=== PATIENT | male | born 2000 | race American Indian/Alaskan Native ===

== ENCOUNTER 2019-10-18 19:11 | Emergency (ER) | payer SELFPAY ==
[2019-10-18] MEDS ORDERED: SODIUM CHLORIDE 0.9% 1000 ML 1,000 ML IV ONE (19:34)
[2019-10-18] MEDS ORDERED: LORazepam 2 MG/ML VIAL IV ONE (19:35)
--- NOTE | 2019-10-18 19:40 | Emergency Department Report ---
ED Psych HPI - General Stated Complaint: MH Time Seen by Provider: 10/18/19 19:28 - History of Present Illness Initial Comments: Patient is 19 years old male with history of depression and an anxiety. Patient brought to the emergency from by his girlfriend for evaluation of suicidal ideation and depression. Patient girlfriend stated that she broke up with him today and since then he started saying that he went to kill himself. Patient is not talking. Patient is hyperventilating. Patient denied any recent drug abuse. Patient denied any homicidal ideation. No visual or auditory hallucination. MD Complaint: suicidal ideation, feels depressed ED Review of Systems ROS: Stated complaint: MH Other details as noted in HPI Comment: All other systems reviewed and negative Constitutional: denies: chills, fever Respiratory: denies: shortness of breath, SOB with exertion Cardiovascular: denies: chest pain Gastrointestinal: denies: abdominal pain, nausea, vomiting Psychiatric: anxiety, depression, suicidal thoughts. denies: auditory hallucinations, visual hallucinations, homicidal thoughts ED Physical Exam - General General appearance: alert, in no apparent distress, anxious - Head Head exam: Present: atraumatic, normocephalic, normal inspection - Eye Eye exam: Present: normal appearance - ENT ENT exam: Present: normal exam, normal orophraynx, mucous membranes moist - Neck Neck exam: Present: normal inspection, full ROM. Absent: tenderness, meningismus, lymphadenopathy, thyromegaly - Respiratory Respiratory exam: Present: normal lung sounds bilaterally - Cardiovascular Cardiovascular Exam: Present: regular rate, normal rhythm, normal heart sounds - GI/Abdominal GI/Abdominal exam: Present: soft, normal bowel sounds. Absent: distended, tenderness, guarding, rebound, rigid, organomegaly, mass, bruit, pulsatile mass, hernia - Extremities Exam Extremities exam: Present: normal inspection, full ROM, normal capillary refill. Absent: tenderness, pedal edema, joint swelling, calf tenderness - Back Exam Back exam: Present: normal inspection, full ROM. Absent: CVA tenderness (R), CVA tenderness (L), muscle spasm, paraspinal tenderness, vertebral tenderness - Neurological Exam Neurological exam: Present: alert, oriented X3, CN II-XII intact, normal gait, reflexes normal. Absent: abnormal gait, motor sensory deficit - Psychiatric Psychiatric exam: Present: depressed, anxious, suicidal ideation. Absent: agitated, flat affect, manic, homicidal ideation - Skin Skin exam: Present: warm, intact, normal color Critical care attestation.: If time is entered above; I have spent that time in minutes in the direct care of this critically ill patient, excluding procedure time. ED Disposition Clinical Impression: Depression, Suicidal ideation Disposition: [id number]/TX-[id number] PSY HOSP/PSY UNIT Is pt being admited?: No Condition: Stable
[2019-10-18 20:33] LABS: Bilirubin,Urine NEG (Negative); Blood,Urine NEG (Negative); Color,Urine Straw (Yellow); Protein,Urine <15 mg/dL mg/dL (Negative); Urobilinogen,Urine < 2.0 mg/dL (<2.0); WBC,Urine < 1.0 /HPF (0.0-6.0)
[2019-10-18 20:41] LABS: Amphetamine Screen,Urine PRESUMPTIVE NEGATIVE; Benzodiazepines Screen,Urine PRESUMPTIVE NEGATIVE; Cocaine Screen,Urine PRESUMPTIVE NEGATIVE; Methadone Screen,Urine PRESUMPTIVE NEGATIVE; Opiate Screen,Urine PRESUMPTIVE NEGATIVE
[2019-10-18 20:47] LABS: Basophils % (Auto) 0.5 % (0.0-1.8); Eosinophils # (Auto) 0.1 K/mm3 (0.0-0.4); Eosinophils % (Auto) 1.5 % (0.0-4.3); Hematocrit 47.6 % (35.5-45.6); Hemoglobin 15.7 gm/dl (11.8-15.2); Lymphocytes % (Auto) 16.3 % (13.4-35.0); Mean Corpuscular HGB Conc 33 % (32-34); Mean Corpuscular Volume 81 fl (84-94); Monocytes # (Auto) 0.6 K/mm3 (0.0-0.8); Monocytes % (Auto) 9.3 % (0.0-7.3); Platelet Count 235 K/mm3 (140-440); Red Cell Distribution Width 13.3 % (13.2-15.2)
[2019-10-18 20:54] LABS: Cannabinoid Screen,Urine PRESUMPTIVE POSITIVE
[2019-10-18 21:07] LABS: BUN/Creatinine Ratio 8; Blood Urea Nitrogen 7 mg/dL (9-20); Calcium 9.4 mg/dL (8.4-10.2); Hemolysis Index 11
--- NOTE | 2019-10-19 10:31 | Consultation ---
History of Present Illness - Reason for Consult Consult date: 10/19/19 Reason for consult: Mental Health Evaluation Requesting physician: RADHA MILLS - Chief Complaint Chief complaint: "I wanted to kill myself yesterday" - History of Present Psychiatric Illness 19 y.o AA male who presented to the ER for SI's. Today the patient was calm during the assessment. Initially the patient was guarded with his answers reference why he was brought to the ER. He eventually opened up and stated that he is having life stressors (unemployment and relationship issues). He stated that he was fired from his job and broke up with his girlfriend a month ago. He stated that "things" have been coming down on him, so yesterday he stated that he thought about shooting himself so he could . He would not conform or deny that he pointed his gun at himself when asked. He stated, "I wanted my life to be over." He rate his depression 5/10, with 10 being the worse. He acknowledged erratic sleep and a poor appetite. He denies recreational sudhir gu se and alcohol consumption (etoh), but was positive for marijuana. Medications and Allergies Allergies Allergy/AdvReac Type Severity Reaction Status Date / Time seafoods Allergy Unknown Uncoded 10/18/19 20:17 Home Medications Medication Instructions Recorded Confirmed Last Taken Type No Known Home Medications [No 10/18/19 10/18/19 Unknown History Reported Home Medications] Active Meds: Active Medications Mirtazapine (Remeron) 15 mg PO HS [facility] Past psychiatric history - Past Medical History Past Medical History: No medical history Past Surgical History: No surgical history - past Psychiatric treatment and history psychiatric treatment history: Denies a psy hx and fam psy hx. - Social History Social history: Lives alone Mental Status Exam - Vital signs Last Vital Signs Temp 98.3 F 10/19/19 07:00 Pulse 99 H 10/19/19 07:00 Resp 18 10/19/19 07:00 BP 120/63 10/19/19 07:00 Pulse Ox 100 10/19/19 07:00 - Exam Narrative exam: MSE: Appearance: calm Behavior: poor eye contact Speech: regular rate and tone Mood:: "down" Affect: flat Thought Process: circumstantial Thought Content: denies HI's and AVH's Motor Activity: ambulatory Cognition: A/O x3 Insight: variable Judgment: poor Results Result Diagrams: 10/18/19 20:26 10/18/19 20:26 Abnormal lab results 10/18/19 10/18/19 10/18/19 Range/Units 20:16 20:26 20:26 RBC 5.90 H (3.65-5.03) M/mm3 Hgb 15.7 H (11.8-15.2) gm/dl Hct 47.6 H (35.5-45.6) % MCV 81 L (84-94) fl MCH 27 L (28-32) pg [place] % (Auto) 9.3 H (0.0-7.3) % Lymph # 1.0 L (1.2-5.4) K/mm3 Seg Neutrophils % 72.4 H (40.0-70.0) % Potassium 3.2 L (3.6-5.0) mmol/L BUN 7 L (9-20) mg/dL Urine pH 9.0 H (5.0-7.0) Salicylates (2.8-20.0) mg/dL Acetaminophen (10.0-30.0) ug/mL 10/18/19 10/18/19 Range/Units 20:27 20:27 RBC (3.65-5.03) M/mm3 Hgb (11.8-15.2) gm/dl Hct (35.5-45.6) % MCV (84-94) fl MCH (28-32) pg [place] % (Auto) (0.0-7.3) % Lymph # (1.2-5.4) K/mm3 Seg Neutrophils % (40.0-70.0) % Potassium (3.6-5.0) mmol/L BUN (9-20) mg/dL Urine pH (5.0-7.0) Salicylates < 0.3 L (2.8-20.0) mg/dL Acetaminophen < 5.0 L (10.0-30.0) ug/mL All other labs normal. Assessment and Plan Assessment and plan: Impression: MDD. Cannabis Use DO. Today the patient was calm during the assessment. DDx: Substance Induced Mood DO Recommendation/Plan: Continue 1013 and start Remeron 15 mg PO HS for depression. Discussed possible metabolic side effects from Remeron with the patient, he verbalized understanding. Dispo: The patient was referred to inpatient psy services. Staffed with Dr Palma Telles.
[2019-10-19] MEDS ORDERED: ACETAMINOPHEN 325 MG TAB PO ONE ×2 (13:16→21:33)
[2019-10-19] MEDS: MIRTAZAPINE 15 MG TAB PO SCH ×2 (21:51→22:22)
[2019-10-19] MEDS ORDERED: ACETAMINOPHEN 325 MG TAB ONE (21:51)
--- NOTE | 2019-10-20 13:20 | Progress Note ---
Subjective - Reason for Consult Consult date: 10/20/19 Reason for consult: Psych follow-u[ Requesting physician: RADHA MILLS - Chief Complaint Chief complaint: "I wanted to kill myself yesterday" History of Present Psychiatric Illness 19 y.o AA male who presented to the ER for SI's. Today the patient was agitated during the assessment. Patient was guarded with his answers reference why he was brought to the ER. He was agitated and made note that he didn't know how long he would remain calm. His body showed signs of aggression, he was balling his fist up, he kicked the wall, He became very restless. He stated that "things" have been coming down on him, so yesterday he stated that he thought about shooting himself so he could . He would not conform or deny that he pointed the gun at himself when asked. He stated, "I wanted my life to be over." He rate hios depression 5/10, with 10 being the worse. He acknowledged erratic sleep and a poor appetite. He denies SI or HI today He denies recreational drug use and alcohol consumption (etoh), but was positive for marijuana. Mental Status Exam - Vital signs Last Vital Signs Temp 98.2 F 10/19/19 20:02 Pulse 18 L 10/19/19 20:02 Resp 18 10/19/19 20:02 BP 119/61 10/19/19 20:02 Pulse Ox 98 10/19/19 20:02 - Exam Orientation: time, place, person Affect: agitated Mood: anxious Thought Process: Circumstantial Perceptions: none Speech: pressured Concentration: distractible Motor activity: restless, agitated Level of consciousness: alert Memory: Intact Interaction: irritable, guarded Assessment and Plan Impression: MDD. Cannabis Use DO. Today the patient agitated today, states he doesn't feel in control. We will continue Patient evaluation and will refer for inpatient status. DDx: Substance Induced Mood DO Recommendation/Plan: Continue 1013 and start Remeron 15 mg PO HS for depression. Discussed possible metabolic side effects from Remeron with the patient, he verbalized understanding. Dispo: The patient was referred to inpatient psy services. Will staff with Dr Palma Telles.
[2019-10-20] MEDS ORDERED: LORazepam 1 MG TAB ONE (16:21)
[2019-10-20] MEDS ORDERED: LORazepam 1 MG TAB PO ONE (16:28)
[2019-10-20] MEDS ORDERED: POTASSIUM CHLORIDE ER 10 MEQ TAB PO ONE (22:49)
[2019-10-20] MEDS: MIRTAZAPINE 15 MG TAB PO SCH (23:36)
[2019-10-20] MEDS ORDERED: POTASSIUM CHLORIDE ER 20 MEQ TAB PO ONE (23:37)
[2019-10-21 01:43] VITALS: BP 137/81
== END 2019-10-21 01:51 ==
LOC: ED 19:11 → EEVIPCON 19:11 → ED 10-21 01:51
DX: F32.9 Major depressive disorder, single episode, unspecified (principal); F12.10 Cannabis abuse, uncomplicated; Z91.013 Allergy to seafood
CPT/HCPCS: 36415; 80048; 80307; 81001; 82962; 85025; 96374; 99285; J2060; J7030; 80320; 96361; G0480